=== PATIENT | female | born 2005 | race Caucasian/White ===

== ENCOUNTER 2024-03-26 17:12 | Emergency (ER) | payer OTHER ==
[~2024-03-26] VITALS: Ht 172.7 cm; Wt 75.0 kg
[2024-03-26 17:23] VITALS: BP 142/82; TEMP 97.9
[2024-03-26 18:23] VITALS: PULSE 87
== END 2024-03-26 18:23 | disposition home or self-care (01) ==
LOC: COL.ER 17:12
DX: S61.211A Laceration without foreign body of left index finger without damage to nail, initial encounter (principal); W26.0XXA Contact with knife, initial encounter